=== PATIENT | male | born 1975 | race Caucasian/White ===

== ENCOUNTER 2016-09-28 01:02 | Emergency (ER) | payer MEDICAID ==
[2016-09-28 01:02] VITALS: BMI 30.4
[2016-09-28 01:33] VITALS: BP 132/93; PULSE 107; TEMP 98.6
[2016-09-28] MEDS ORDERED: LIDOCAINE 2% VISCOUS ORAL 15 ML PO ONE (02:16)
[2016-09-28] MEDS ORDERED: Aluminum;Magnesium;Simethicone 30 ML UDC PO ONE (02:16)
[2016-09-28] MEDS ORDERED: PANTOPRAZOLE 40 MG TAB PO ONE (02:17)
[2016-09-28] MEDS ORDERED: ONDANSETRON HCL 4 MG ODT TAB PO ONE (02:17)
[2016-09-28] MEDS ORDERED: NS 1,000 ML IV ONE (02:19)
--- NOTE | 2016-09-28 02:19 | EDPRACDOC ---
- General Information Chief Complaint: Nausea,Vomiting,Diarrhea Stated Complaint: N/V/D, HYPERGLYCEMIA (BRONCHITIS) Time Seen by Provider: 09/28/16 02:16 Information Source: Patient Home Medications: Home Medications Insulin Glargine,Hum.rec.anlog [Lantus] 160 units SQ HS 07/01/13 MetFORMIN (Immediate Release) [GLUCOPHAGE Immed Release] 2,000 mg PO BID Benzonatate [Tessalon Perle] 100 mg PO TID PRN 09/28/16 Cefdinir 300 mg PO BID 09/28/16 Pantoprazole Sodium [Protonix] 40 mg PO DAILY #30 tab 09/28/16 Promethazine [Phenergan] 25 mg PO Q8H PRN #30 tab 09/28/16 Allergies/Adverse Reactions: Allergies Allergy/AdvReac Type Severity Reaction Status Date / Time No Known Allergies Allergy Verified 09/28/16 01:33 - History of Present Illness Onset: 1 week HPI: PATIENT DEVELOPED A COUGH 1 WEEK AGO. PLACED ON TESSALON PEARLES AND CEFDINIR BY PCP. NOW DEVELOPED NAUSEA AND VOMITING. EPIGASTRIC PAIN Symptoms Occured: Reports: Spontaneous Duration: Reports: Since Onset Emesis: Reports: Bilious Pain Quality: Reports: Aching Pain Severity: Mild Pain Location: Reports: Epigastric Associated Signs and Symptoms: Reports: Nausea, Vomiting Oral Intake: Normal Urinary Output: Normal ED Past Medical History - History Reviewed Yes Nurses notes reviewed and agree except as marked Travel Outside of [place] in the Last 3 Months?: No - Patient Medical History Psychological History: Denies: Depression Systemic History: Reports: Diabetes Surgical History: Reports: Other (KNEE, HAND) - Social Medical History Smoking Status: Never smoker ETOH: None Substance Abuse: None Lives With: Family Lives In: Home EDM Review of Systems - Review of Systems ROS Negative Except as Marked: Yes All systems reviewed and were negative except as marked Constitutional: No Symptoms Reported. negative: Fever, Chills, Weakness, Fatigue, Loss of Appetite Eyes: No Symptoms Reported. negative: Redness, Blurred Vision, Double Vision, Discharge, Pain, Light Sensitive, Photophobia Ears: No Symptoms Reported. negative: Pain, Hearing Loss, Drainage, Ear Pulling Throat: No Symptoms Reported. negative: Pain, Swelling Nose: No Symptoms Reported. negative: Congestion, Bleeding, Discharge, Injection, Swelling, Deformity, Ecchymosis, Tender, Abrasion, Laceration Mouth: No Symptoms Reported. negative: Pain, Drooling Respiratory: No Symptoms Reported. negative: Cough, Brassy Cough, Barky Cough, Shortness of Breath, Wheezing, Hemoptysis Cardiovascular: No Symptoms Reported. negative: Chest Pain, Palpitations, Syncope, Edema, Orthopnea, PND, Skin Mottling, Cyanosis Gastrointestinal: Nausea, Vomiting. negative: Constipation, Diarrhea, Formula Intolerance, Melena, Pain Genitourinary: No Symptoms Reported. negative: Dysuria, Hematuria, Frequency, Discharge, Bleeding, Testicular Pain, Neurological: No Symptoms Reported. negative: Headache, Dizziness, Seizure, Numbness, Weakness, Speech Difficulty, Gait Difficulty Musculoskeletal: No Symptoms Reported. negative: Neck, Chestwall, Ribs, Back, Shoulder, Arm, Elbow, Forearm, Wrist, Hand, Pelvis, Hip, Femur, Knee, Leg, Ankle , Foot Integumentary: No Symptoms Reported. negative: Itching, Rash, Bruising, Wound Allergic/Immunologic: No Symptoms Reported. negative: Hives, Itching Hematologic: No Symptoms Reported. negative: Lymphadenopathy, Easy Bruising, Easy Bleeding Endocrine: No Symptoms Reported. negative: Weight Gain, Weight Loss Psychiatric: No Symptoms Reported. negative: Anxiety, Depression, Hallucinations, Insomnia, Suicidal - Physical Exam Constitutional: Alert (Awake), No apparent distress Oriented to: Time, Person, Place Last recorded Vital Signs: Last Vital Signs Temp 98.6 F 09/28/16 01:30 Pulse 107 09/28/16 01:30 Resp 20 09/28/16 01:30 BP 132/93 09/28/16 01:30 Pulse Ox 95 09/28/16 01:30 Oxygen Pulse Oxygen Saturation 95 O2 Device Room Air Oxygen Flow Rate Fraction of Inspired Oxygen ( FIO2) - HEENT Head: Normal ( normocephalic) Eye Exam: Normal (PERRL, EOMI, Sclera white) Oropharynx: Normal (Pharynx:Moist without exudate,Gums-no swelling) Tympanic Membrane: Normal ENT EAC: Normal TMJ: Normal Nose: No Symptoms Reported (septum midline) Neck: Normal (FROM, trachea at midline) - Respiratory/Cardiovascular Respiratory: Normal - CTA (BBS clear to auscultation without adventitious sounds ) Cardiovascular: Normal (RRR without murmur, gallop or rub) - GI Auscultation: Normal (NABS) Palpation: Normal (Soft,No rebound or guarding, non distended) Tenderness: Non tender Simons's Sign: Negative - Musculoskeletal Back: Normal (Non-Tender) Extremities: Normal (Normal tone, Pulses 2+ No cyanosis or edema, FROM) - Integumentary Skin: Normal, Warm, Dry Lymphatics: Normal (no adenopathy) - Neurologic Memory Impaired: Normal Motor Function: Normal (Normal tone, Pulses 2+ No cyanosis or edema, FROM) Cranial Nerve: Normal (CN II-X11 intact sensation, strength 5/5) Cerebellar: Normal Mood Description: Normal Perception: Normal - Results 09/28/16 02:46 09/28/16 02:46 Decision Time to Discharge: 03:37 - Departure Yes I personally saw and evaluated the patient. Disposition: Home Condition: Good Final Diagnosis: Nausea & vomiting Qualifiers: Vomiting type: unspecified Vomiting Intractability: non-intractable Qualified Code(s): R11.2 - Nausea with vomiting, unspecified Gastritis Qualifiers: Gastritis type: unspecified gastritis Chronicity: acute Gastritis bleeding: without bleeding Qualified Code(s): K29.00 - Acute gastritis without bleeding Instructions: Acute Nausea and Vomiting (ED) Education/Counseling Given To: Patient Education/Counseling Given Regarding: Diagnosis, Treatment, Prognosis, Follow Up Referrals: Dusty Morrow MD [Primary Care Provider] - One Week Prescriptions: Pantoprazole Sodium [Protonix] 40 mg PO DAILY #30 tab Promethazine [Phenergan] 25 mg PO Q8H PRN #30 tab PRN Reason: Nausea/Vomiting
[2016-09-28 02:53] LABS: AUTOMATED BASOPHIL 1.5 % (0-2); AUTOMATED EOSINOPHIL 1.6 % (0-5); AUTOMATED LYMPH 30.3 % (17-44); AUTOMATED NEUTROPHIL 55.6 % (45-76); MPV 8.8 fL (7.4-10.4)
[2016-09-28 03:08] LABS: BLOOD UREA NITROGEN 11 MG/DL (9-20); CALCULATED OSMOLALITY 272 MOs/Kg (270-290); CHLORIDE 95 mEq/L (98-107); GLUCOSE 291 MG/DL (70-99); SODIUM LEVEL 136 mEq/L (137-146); TOTAL PROTEIN 7.9 G/DL (6.3-8.2)
--- NOTE | 2016-09-28 03:10 | DIRPT ---
CLINICAL DATA: Generalized abdominal pain, nausea, vomiting and diarrhea for 1 week. EXAM: DG ABDOMEN ACUTE W/ 1V CHEST COMPARISON: CT abdomen and pelvis January 27, 2016 FINDINGS: Cardiomediastinal silhouette is normal. Lungs are clear, no pleural effusions. No pneumothorax. Soft tissue planes and included osseous structures are unremarkable. Bowel gas pattern is nondilated and nonobstructive. Mild amount of retained large bowel stool. No intra-abdominal mass effect, pathologic calcifications or free air. Soft tissue planes and included osseous structures are non-suspicious. IMPRESSION: Normal chest. Mild amount of retained large bowel stool without bowel obstruction. Electronically Signed By: Don Ford M.D. On: 09/28/2016 03:07
== END 2016-09-28 03:54 | disposition home or self-care (01) ==
LOC: ED 01:02
DX: K29.00 Acute gastritis without bleeding (principal)
CPT/HCPCS: 36415; 74022; 80053; 83690; 85025; 87804; 99283; J2001; J3490